=== PATIENT | female | born 2000 | race Caucasian/White ===

== ENCOUNTER 2023-09-19 09:28 | Emergency (ER) | payer OTHER, SELFPAY ==
[2023-09-19 09:42] VITALS: BP 147/114; PULSE 95; RESP 16; TEMP 36.4; O2SAT 100
[2023-09-19 10:18] LABS: Basophils Percent Auto 0.9 % (0.2-1.2); Eosinophils Absolute Auto 0.1 K/mm3 (0-0.3); Eosinophils Percent Auto 1.2 % (0-4.4); Hemoglobin 12.5 g/dL (12.0-15.0); Immature Granulocyte Absolute 0.01 K/mm3 (0.00-0.031); Immature Granulocyte Percent A 0.2 % (0-0.5); Lymphocytes Absolute Auto 1.58 K/mm3 (0.9-3.2); Lymphocytes Percent Auto 36.5 % (18.3-44.2); Mean Corpuscular HGB Conc 32.1 g/dl (32-36); Mean Corpuscular Hemoglobin 30.7 pg (26-34); Mean Corpuscular Volume 95.8 fl (80-100); Mean Platelet Volume 10.8 fl (7.4-10.4); Monocytes Absolute Auto 0.2 K/mm3 (0.1-0.6); Monocytes Percent Auto 5.1 % (2.6-8.5); Neutrophils Absolute Auto 2.4 K/mm3 (1.3-6.7); Neutrophils Percent Auto 56.1 % (45.5-73.1); Platelet Count Result 184 k/mm3 (150-375); Red Blood Count 4.07 M/mm3 (4.2-5.4); Red Cell Distribution Width 12.3 % (11.5-14.5); White Blood Count 4.3 K/mm3 (4.5-10.0)
[2023-09-19 10:20] LABS: Appearance Urine Cloudy (Clear); Bacteria Urine 2+ /hpf; Bilirubin Urine Negative (Negative); Blood Urine Negative (Negative); Color Urine Yellow (Yellow); Glucose Urine UA Negative (Negative); Ketones Urine Trace mg/dL (Negative); Leukocyte Esterase Ur 2+ LEU/UL (Negative); Nitrate Urine Negative (Negative); Non Pathogenic Casts 0-2; Protein Urine Trace mg/dL (Negative); RBC Urine 0-2 /hpf (0-2); Specific Grav Ur 1.022 (1.001-1.035); Squamous Epithelial Cell Urine Moderate /hpf (Few); Urobilinogen Urine 0.2 mg/dL (<2.0); WBC Urine 21-50 /hpf; pH Urine 5.5 (5.0-9.0)
[2023-09-19 10:25] LABS: Add Urine Microscopic? YES
[2023-09-19 10:43] LABS: Alanine Aminotransferase 11 U/L (6-35); Albumin Level 4.4 g/dL (3.5-5.1); Alkaline Phosphatase 48 U/L (38-126); Anion Gap 7 mmol/L (8-16); Aspartate Amino Transferase 22 U/L (14-36); Bilirubin,Total 0.7 mg/dL (0.2-1.3); Blood Urea Nitrogen 13 mg/dL (7-17); Calcium 9.3 mg/dL (8.4-10.2); Carbon Dioxide 27 mmol/L (22-30); Chloride 103 mmol/L (98-107); Estimated CRCL calculation 91 ml/min; Estimated Glomerular Filt Rate > 60; Glucose 96 mg/dL (65-110); Lipase 35 U/L (23-300); Potassium 3.9 mmol/L (3.4-5.0); Sodium 137 mmol/L (137-145)
[2023-09-19] MEDS: SODIUM CHLORIDE 0.9% IV 1,000 ML 999 ML IV CONT (11:27)
[2023-09-19] MEDS: DICYCLOMINE HCL 10 MG CAPSULE 20 MG PO (11:27)
--- NOTE | 2023-09-19 12:07 | ED.NAVMDI ---
HPI - Nausea/Vomiting/Diarrhea General Chief complaint: Nausea/Vomiting/Diarrhea Stated complaint: diarrhea x1 month Time Seen by Provider: 09/19/23 10:40 Source: patient Mode of arrival: ambulatory Limitations: no limitations History of Present Illness HPI Narrative: Patient is a 23-year-old female who presents the ED with report of diarrhea. Patient reports having intermittent diarrhea for the last 1 month. States occurs at random, no significant aggravation or alleviation with certain foods. She has not tried anything for the diarrhea. Denies rectal bleeding or melena. She also reports intermittent upper abdominal pain, intermittent nausea, urinary frequency, dark urine. Denies dysuria or hematuria. Denies fevers. Denies dizziness or lightheadedness. Denies recent abx use, foreign travel. Related Data Allergies Allergy/AdvReac Type Severity Reaction Status Date / Time No Known Allergies Allergy Verified 09/19/23 10:28 Review of Systems Review of Systems: CONSTITUTIONAL: Denies fever, chills, or sweats. CARDIOVASCULAR: Denies chest pain. RESPIRATORY: Denies dyspnea. GASTROINTESTINAL: See HPI. GENITOURINARY: See HPI. NEUROLOGIC: Denies headache, dizziness, numbness, or weakness. All systems reviewed & are unremarkable except as noted in HPI and below Exam Narrative: GENERAL: Well appearing, thin, non-toxic, in no acute distress. HEAD: Normocephalic, atraumatic. RESPIRATORY: Airway patent, respirations nonlabored. Clear to auscultation bilaterally, no rales, rhonchi, wheezing. CARDIOVASCULAR: Regular rate and rhythm without murmurs, rubs, or gallops. ABDOMINAL: Soft, no significant tenderness throughout abdomen, nondistended. Normoactive BS. MUSCULOSKELETAL: Moves all extremities. No gross deformities. SKIN: Warm, dry, normal color. NEURO: A&O X3. Speech clear. Cranial nerves II-XII grossly intact. Steady gait. No ataxic movements. PSYCHIATRIC: Appropriate mood and affect. Normal interaction. Course Vital Signs Vital signs: Vital Signs Temperature 97.6 F 09/19/23 09:42 Pulse Rate 95 09/19/23 09:42 Respiratory Rate 09/19/23 09:42 Blood Pressure 147/114 H 09/19/23 09:42 Pulse Oximetry 100 09/19/23 09:42 Oxygen Delivery Room Air 09/19/23 09:42 Temperature 97.6 F 09/19/23 09:42 Pulse Rate 95 09/19/23 09:42 Respiratory Rate 16 09/19/23 09:42 Blood Pressure 147/114 H 09/19/23 09:42 Pulse Oximetry 100 09/19/23 09:42 Oxygen Delivery Room Air 09/19/23 09:42 MDM - Nausea/Vomiting/Diarrhea MDM Narrative Medical decision making narrative: Patient present ED with 1 month history of diarrhea, intermittent other symptoms. Vital stable. Exam unremarkable. Patient in no acute distress. No abdominal tenderness on exam. Basic laboratory studies are unremarkable. No leukocytosis. Stable electrolytes. UA consistent with infection. Will treat as patient is symptomatic. Given dose of Rocephin in the ED. Will discharge on Keflex. Discussed possibility of IBS, [id number] therapies to try for diarrhea, GI information for follow-up. Will also prescribe Bentyl for home use for intermittent abdominal discomfort. Will send for outpatient stool studies. Patient without any abdominal pain or tenderness on exam at this time to suggest need for further labs or imaging. Given return precautions. Patient in agreement with plan. Discharged in stable condition. Medical Records Attestation: I reviewed the patient's medical records. Lab Data Attestation: I reviewed the patient's lab results. 09/19/23 09:57 09/19/23 09:57 Labs: Lab Results 09/19/23 Range/Units 09:57 WBC 4.3 L (4.5-10.0) K/mm3 RBC 4.07 L (4.2-5.4) M/mm3 Hgb 12.5 (12.0-15.0) g/dL Hct 39.0 (37.0-47.0) % MCV 95.8 (80-100) fl MCH 30.7 (26-34) pg MCHC 32.1 (32-36) g/dl RDW 12.3 (11.5-14.5) % Plt Count 184 (150-375) k/mm3 MPV 10.8 H (7.4-1
== END 2023-09-19 12:39 | disposition home or self-care (01) ==
PROVIDERS: Emergency Medicine; Emergency Provider Physician Assistant
DX: N30.00 Acute cystitis without hematuria (principal); R19.7 Diarrhea, unspecified
CPT/HCPCS: 36415; 80053; 81001; 81025; 83690; 85025; 87045; 87086; 87427; 87449; 87493; 96361; 96365; 99284; A9270; J0696; J7030

== ENCOUNTER 2023-09-20 11:41 | Outpatient (CLI) | payer OTHER, SELFPAY ==
[2023-09-20 13:18] LABS: Toxigenic C. Diff NEGATIVE (NEGATIVE)
== END 2023-09-20 11:42 | disposition home or self-care (01) ==
LOC: ANHLAB 11:44
PROVIDERS: PCP Family Medicine; Visit Provider Physician Assistant
DX: R19.7 Diarrhea, unspecified (principal)
CPT/HCPCS: 87045; 87427; 87449; 87493

== ENCOUNTER 2025-02-17 09:34 | Outpatient (CLI) | payer OTHER, SELFPAY ==
--- NOTE | ~2025-02-17 | XR_ITS ---
Cervical Spine: AP, lateral, open-mouth views Clinical History: Polyarthritis Findings: There is minimal reversal of the normal cervical lordosis. 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 The intervertebral disc spaces are well maintained. Pre-vertebral soft t issues are unremarkable. Impression: Minimal reversal of the normal cervical lordosis, otherwise unremarkable exam. Reviewed, dictated and finalized at location . Impression: Minimal reversal of the normal cervical lordosis, otherwise unremarkable exam.
--- NOTE | ~2025-02-17 | XR_ITS ---
Right Hand Technique: PA and lateral views were obtained. Clinical History: Polyarthritis Findings: No acute fracture or dislocation is seen. Osseous alignment is anatomic. Joint spaces are p reserved. Soft tissues are unremarkable. Impression: Unremarkable right hand. Reviewed, dictated and finalized at location M. Impression: Unremarkable right hand.
--- NOTE | ~2025-02-17 | XR_ITS ---
Left Knee Technique: AP and lateral views were obtained. Clinical History: Polyarthritis Findings: No fracture or dislocation is seen. Osseous alignment is anatomic. Joint spaces are preserv ed without degenerative or erosive change. Soft tissues are unremarkable. No joint effusion is seen. Impression: Unremarkable left knee radiographs. Reviewed, dictated and finalized at [facility]. Impression: Unremarkable left knee radiographs.
--- NOTE | ~2025-02-17 | XR_ITS ---
AP view of the pelvis and AP and lateral views of the bilateral hips Clinical history: Polyarthritis Findings: No acute fracture or dislocation is seen. Osseous alignment is anatomic. Bilateral hip and SI joint spaces are preserved. Soft tissues are unremarkable. Impression: No significant abnormality is seen. Reviewed, dictated and finalized at location . Impression: No significant abnormality is seen.
--- NOTE | ~2025-02-17 | XR_ITS ---
Right Shoulder Technique: AP and scapular Y views were obtained. Clinical History: Polyarthritis Findings: No fracture or dislocation is seen. Osseous alignment is anatomic. The glenohumeral and acr omioclavicular joint spaces are preserved. Soft tissues are unremarkable. Impression: Unremarkable right shoulder radiographs. Reviewed, dictated and finalized at location . Impression: Unremarkable right shoulder radiographs.
--- NOTE | ~2025-02-17 | XR_ITS ---
Left Shoulder Technique: AP and scapular Y views were obtained. Clinical History: Polyarthritis Findings: No fracture or dislocation is seen. Osseous alignment is anatomic. The glenohumeral and acr omioclavicular joint spaces are preserved. Soft tissues are unremarkable. Impression: Unremarkable left shoulder radiographs. Reviewed, dictated and finalized at location . Impression: Unremarkable left shoulder radiographs.
--- NOTE | ~2025-02-17 | XR_ITS ---
Right Knee Technique: AP and lateral views were obtained. Clinical History: Arthritis Findings: No fracture or dislocation is seen. Osseous alignment is anatomic. Joint spaces are preserv ed without degenerative or erosive change. Soft tissues are unremarkable. No joint effusion is seen. Impression: Unremarkable right knee radiographs. Reviewed, dictated and finalized at location . Impression: Unremarkable right knee radiographs.
--- NOTE | ~2025-02-17 | XR_ITS ---
Left Hand Technique: PA and lateral views were obtained. Clinical History: Polyarthritis Findings: No acute fracture or dislocation is seen. Osseous alignment is anatomic. Joint spaces are p reserved. Soft tissues are unremarkable. Impression: Unremarkable left hand. Reviewed, dictated and finalized at location M. Impression: Unremarkable left hand.
== END 2025-02-17 09:35 | disposition home or self-care (01) ==
LOC: MICIMG 09:38
PROVIDERS: PCP Internal Medicine Rheumatology; Visit Provider Internal Medicine Rheumatology
DX: M79.10 Myalgia, unspecified site (principal); M79.642 Pain in left hand; M79.641 Pain in right hand; M25.552 Pain in left hip; M25.551 Pain in right hip; M25.561 Pain in right knee; M25.562 Pain in left knee; M25.512 Pain in left shoulder; M25.511 Pain in right shoulder; M54.2 Cervicalgia; R76.8 Other specified abnormal immunological findings in serum; R53.83 Other fatigue
CPT/HCPCS: 72040; 73030; 73120; 73521; 73560